=== PATIENT | female | born 1995 | race Two or more races ===

== ENCOUNTER 2018-07-31 14:25 | Emergency (ER) | payer MEDICAID ==
[~2018-07-31] VITALS: Ht 162.6 cm; Wt 92.1 kg
[2018-07-31 15:02] VITALS: BP 125/79
== END 2018-07-31 21:57 | disposition left against medical advice (07) ==
LOC: ER 14:25
DX: T81.89XD Other complications of procedures, not elsewhere classified, subsequent encounter (principal)

== ENCOUNTER 2018-08-25 18:09 | Emergency (ER) | payer MEDICAID ==
[~2018-08-25] VITALS: Ht 162.6 cm; Wt 89.8 kg
[2018-08-25 18:21] VITALS: BP 129/78
[2018-08-25 18:51] LABS: Basophils # (auto) 0.1 uL; Eosinophils # (auto) 0.1 uL; Eosinophils % (auto) 2.5 % (0.0-7.0); Hematocrit 37.7 % (36.0-46.0); Hemoglobin 12.6 g/dL (12.2-16.2); Lymphocytes # (auto) 1.6 uL; Lymphocytes % (auto) 27.9 % (10.0-50.0); Mean Corpuscular Hemoglobin 29.3 pg (28.0-32.0); Mean Corpuscular Hgb Conc. 33.3 g/dL (32.0-36.0); Mean Corpuscular Volume 88.1 fL (80.0-100.0); Monocytes # (auto) 0.5 uL; Monocytes % (auto) 7.7 % (0.0-12.0); Neutrophils # (auto) 3.6 uL; Neutrophils % (auto) 60.9 % (37.0-80.0); Platelet Count (auto) 212 10^3/uL (140-450); Red Blood Cells 4.28 10^6/uL (4.0-5.20); Red Cell Distribution Width 15.2 % (11.8-14.3); White Blood Cell 5.8 10^3/uL (4.4-10.8)
[2018-08-25 19:10] LABS: Albumin 3.5 g/dL (3.4-5.0); Amylase 44 U/L (25-115); Anion Gap 5 (5-15); Blood Urea Nitrogen 11 mg/dL (7-18); Calcium 8.1 mg/dL (8.5-10.1); Carbon Dioxide 26 mmol/L (21-32); Chloride 110 mmol/L (98-107); Glucose 127 mg/dL (74-106); Lipase 117 U/L (73-393); Potassium 3.8 mmol/L (3.5-5.1); Sodium 141 mmol/L (136-145)
[2018-08-25 19:15] LABS: Alanine Aminotransferase 44 U/L (13-56); Alkaline Phosphatase 120 U/L (45-117); Aspartate Aminotransferase 33 U/L (15-37); BUN/Creatinine Ratio 16.2; Bilirubin, Total 0.2 mg/dL (0.2-1.0); GFR African American > 60 mL/min; GFR Non-African American > 60 mL/min
== END 2018-08-25 23:54 | disposition left against medical advice (07) ==
LOC: ER 18:11
DX: R06.02 Shortness of breath (principal); Z48.01 Encounter for change or removal of surgical wound dressing; Z53.21 Procedure and treatment not carried out due to patient leaving prior to being seen by health care provider
CPT/HCPCS: 36415; 71046; 80053; 82150; 83690; 84484; 85025; 93005

== ENCOUNTER 2022-08-12 20:08 | Emergency (ER) | payer OTHER, MEDICAID ==
[~2022-08-12] VITALS: Ht 162.6 cm; Wt 101.0 kg
[2022-08-13 01:07] VITALS: BP 112/78
== END 2022-08-13 01:07 | disposition home or self-care (01) ==
LOC: ER 20:10
DX: M54.50 Low back pain, unspecified (principal); Z98.890 Other specified postprocedural states
CPT/HCPCS: 72100